=== PATIENT | female | born 1955 | race Caucasian/White ===

== ENCOUNTER 2022-10-29 16:24 | Emergency (ER) | payer BC, MEDICARE, OTHER ==
[2022-10-29] MEDS ORDERED: Bacitracin Oint 1 GM U/D Packet TOP ONE (17:54)
[2022-10-29] MEDS ORDERED: Diphtheria,Pertussis(Acell),Tetanus Vaccine 0.5 ML Syringe IM ONE (17:54)
== END 2022-10-29 18:20 | disposition home or self-care (01) ==
LOC: JP.ED 16:24
DX: S01.21XA Laceration without foreign body of nose, initial encounter (principal); E78.00 Pure hypercholesterolemia, unspecified; J45.909 Unspecified asthma, uncomplicated; Z86.16 Personal history of COVID-19; Z79.899 Other long term (current) drug therapy; W18.30XA Fall on same level, unspecified, initial encounter
CPT/HCPCS: 12011; 90471; 90715; 99282-25